=== PATIENT | female | born 1995 | race Two or more races ===

== ENCOUNTER 2018-12-02 12:52 | Emergency (ER) | payer SELFPAY ==
[2018-12-02 13:03] VITALS: BP 122/69; PULSE 69; TEMP 98; BMI 22.1
--- NOTE | 2018-12-02 13:27 | PDOC ---
History of Present Illness - General Chief Complaint: Injury Stated Complaint: RT HAND INJURY Time Seen by Provider: 12/02/18 13:03 - History of Present Illness Initial Comments: 12/02/18 13:24 23-year-old female with history of iron deficiency anemia presents for right wrist pain after a fall last night. She denies hitting her head. She points to the DRUJ as the area of her discomfort Past History - Past Medical History Allergies/Adverse Reactions: Allergies Allergy/AdvReac Type Severity Reaction Status Date / Time cat dander Allergy Verified 12/02/18 13:01 Home Medications: Ambulatory Orders NK [No Known Home Medication] 12/02/18 COPD: No - Suicide/Smoking/Psychosocial Hx Smoking Status: No Smoking History: Never smoked Number of Cigarettes Smoked Daily: 0 Review of Systems - Review of Systems Musculoskeletal: Yes: Joint Pain *Physical Exam - Vital Signs Last Vital Signs Temp Pulse Resp BP Pulse Ox 98 F 69 18 122/69 99 12/02/18 12:57 12/02/18 12:57 12/02/18 12:57 12/02/18 12:57 12/02/18 12:57 - Physical Exam Comments: 12/02/18 13:25 Right wrist skin color and temperature are normal. There is no tenderness about the elbow. There is full supination and pronation. No tenderness about the distal radius radial styloid distal ulnar ulna styloid. Mild tenderness about the DRUJ. No tenderness about the snuffbox. Mildly decreased range of motion. No gross sensorimotor deficits neurovascular intact. Negative: Ray, axial grind Moderate Sedation - Procedure Monitoring Vital Signs: Procedure Monitoring Vital Signs Temperature 98 F 12/02/18 12:57 Pulse Rate 69 12/02/18 12:57 Respiratory Rate 18 12/02/18 12:57 Blood Pressure 122/69 12/02/18 12:57 O2 Sat by Pulse Oximetry (%) 99 12/02/18 12:57 *DC/Admit/Observation/Transfer Diagnosis at time of Disposition: Wrist sprain - Discharge Dispostion Disposition: HOME Condition at time of disposition: Stable Decision to Admit order: No - Referrals Referrals: Lucian Kimball MD [Staff Physician] - - Patient Instructions Printed Discharge Instructions: Wrist Sprain, DI for Wrist Sprain Additional Instructions: Return to the emergency room should symptoms worsen or go unresolved. He may wear the wrist splint for comfort and remove it for gentle range of motion at home. Follow-up with hand surgery in 2-3 days for further evaluation and treatment options. - Post Discharge Activity
== END 2018-12-02 13:59 | disposition home or self-care (01) ==
LOC: JERFT 12:52 → JER 12:52 → JERFT 13:59
PROC: 2W3CX1Z Immobilization of Right Lower Arm using Splint (ICD-10-PCS; principal; 2018-12-02)
DX: S63.501A Unspecified sprain of right wrist, initial encounter (principal); W18.39XA Other fall on same level, initial encounter; Y93.89 Activity, other specified; Y92.89 Other specified places as the place of occurrence of the external cause; Y99.8 Other external cause status
CPT/HCPCS: 73110-TC-RT-FY; 99281-25

== ENCOUNTER 2020-11-30 10:17 | Emergency (ER) | payer OTHER ==
[2020-11-30 11:47] VITALS: BP 124/74; PULSE 87; TEMP 97.8; BMI 19.2
[2020-11-30] MEDS ORDERED: SODIUM CHLORIDE 0.9% 500 ML INFUS.BAG IV ONE (12:25)
[2020-11-30] MEDS ORDERED: ONDANSETRON 4 MG/2 ML VIAL IVPUSH ONE (12:25)
[2020-11-30] MEDS ORDERED: ONDANSETRON 4 MG/2 ML VIAL ONE (12:31)
[2020-11-30 13:14] LABS: BASO % 0.6 % (0-2.0); HEMATOCRIT 41.8 % (32.4-45.2); HEMOGLOBIN 14.5 GM/dL (10.7-15.3); LYMPH % 26.8 % (8-40); MCH 32.9 pg (25.7-33.7); MCHC 34.8 g/dl (32.0-36.0); MEAN CELL VOLUME 94.6 fl (80-96); MEAN PLT VOLUME 9.5 fl (7.5-11.1); MONO % 7.8 % (3.8-10.2); NEUT % 64.8 % (42.8-82.8); PLATELET COUNT 190 K/MM3 (134-434); RBC 4.41 M/mm3 (3.60-5.2); RDW 12.9 % (11.6-15.6); WHITE BLOOD COUNT 8.3 K/mm3 (4.0-10.0)
[2020-11-30 13:44] LABS: CHLORIDE 103 mmol/L (98-107); POTASSIUM 3.4 mmol/L (3.5-5.1); SODIUM 135 mmol/L (136-145)
[2020-11-30 13:46] LABS: ANION GAP 9 MMOL/L (8-16); BLOOD UREA NITROGEN 10.6 mg/dL (7-18); CALCIUM 9.2 mg/dL (8.5-10.1); CO2 23 mmol/L (21-32); GLUCOSE,RANDOM 116 mg/dL (74-106); LIPASE 98 U/L (73-393)
[2020-11-30 13:47] LABS: ALBUMIN 4.1 g/dl (3.4-5.0)
[2020-11-30 13:49] LABS: CREATININE 0.7 mg/dL (0.55-1.3); SGOT/AST 13 U/L (15-37); SGPT/ALT 17 U/L (13-61)
[2020-11-30 13:51] LABS: BILIRUBIN,TOTAL 0.6 mg/dL (0.2-1); TOT PROT 7.1 g/dl (6.4-8.2)
[2020-11-30 13:52] LABS: ALK PHOS 32 U/L (45-117)
[2020-11-30 16:07] LABS: URINE APPEARANCE CLEAR; URINE COLOR DK YELLOW
[2020-11-30 16:08] LABS: URINE BILIRUBIN NEGATIVE (NEGATIVE); URINE GLUCOSE (UA) NEGATIVE (NEGATIVE); URINE KETONE >=80 mg/dl (NEGATIVE); URINE PROTEIN 1+ (NEGATIVE)
[2020-11-30 16:09] LABS: EPI CELLS 15.8 /uL (0-25.1); HYALINE CASTS 5.78 /uL (0-3.1); URINE BACTERIA 251.4 /uL (0-1359); URINE LEUK ESTERASE NEGATIVE (NEGATIVE); URINE NITRITE NEGATIVE (NEGATIVE); URINE RBC 6.5 /uL (0-23.9); URINE WBC 8.8 /uL (0-25.8)
== END 2020-11-30 15:07 | disposition home or self-care (01) ==
LOC: JER 10:17
PROC: 3E033NZ Introduction of Analgesics, Hypnotics, Sedatives into Peripheral Vein, Percutaneous Approach (ICD-10-PCS; principal; 2020-11-30)
DX: R55 Syncope and collapse (principal)
CPT/HCPCS: 36415; 76801-TC; 80053; 81003; 82550; 83690; 84484; 84702; 85025; 86850; 86900; 86901; 87086; 93005; 93010; 99285-25

== ENCOUNTER 2020-12-30 11:05 | Emergency (ER) | payer OTHER ==
[2020-12-30 11:16] VITALS: BP 126/72; PULSE 87; TEMP 97.6; BMI 19.7
[2020-12-30] MEDS ORDERED: SODIUM CHLORIDE 1,000 ML IV STA (11:42)
[2020-12-30 12:36] LABS: ALBUMIN 3.4 g/dl (3.4-5.0); CALCIUM 8.9 mg/dL (8.5-10.1)
[2020-12-30 12:37] LABS: BLOOD UREA NITROGEN 11.7 mg/dL (7-18)
[2020-12-30 12:40] LABS: CREATININE 0.6 mg/dL (0.55-1.3)
[2020-12-30 12:41] LABS: BILIRUBIN,TOTAL 0.2 mg/dL (0.2-1); TOT PROT 6.5 g/dl (6.4-8.2)
[2020-12-30 13:00] LABS: HCG,QUALITATIVE URINE Positive
[2020-12-30 13:05] LABS: EPI CELLS 1 /uL (0-25.1); PH,URINE >= 9.0 (5.0-8.0); URINE BACTERIA 37 /uL (0-1359); URINE BILIRUBIN NEGATIVE (NEGATIVE); URINE COLOR RED; URINE GLUCOSE (UA) NEGATIVE (NEGATIVE); URINE KETONE NEGATIVE (NEGATIVE); URINE LEUK ESTERASE 1+ (NEGATIVE); URINE NITRITE NEGATIVE (NEGATIVE); URINE PROTEIN 4+ (NEGATIVE); URINE UROBILINOGEN 0.2 mg/dL (0.2-1.0)
[2020-12-30 13:09] LABS: URINE APPEARANCE BLOODY; URINE RBC 8877.1 /uL (0-23.9); URINE WBC 1.2 /uL (0-25.8)
[2020-12-30 13:10] LABS: HYALINE CASTS 4.5 /uL (0-3.1)
[2020-12-30 13:20] LABS: BASO % 0.5 % (0-2.0); EOS % 0.4 % (0-4.5); HEMATOCRIT 32.6 % (32.4-45.2); HEMOGLOBIN 11.3 GM/dL (10.7-15.3); LYMPH % 25.8 % (8-40); MCH 33.3 pg (25.7-33.7); MCHC 34.6 g/dl (32.0-36.0); MEAN CELL VOLUME 96.2 fl (80-96); MEAN PLT VOLUME 9.3 fl (7.5-11.1); MONO % 7.1 % (3.8-10.2); NEUT % 66.2 % (42.8-82.8); PLATELET COUNT 231 K/MM3 (134-434); RBC 3.39 M/mm3 (3.60-5.2); RDW 13.5 % (11.6-15.6); WHITE BLOOD COUNT 7.7 K/mm3 (4.0-10.0)
== END 2020-12-30 14:25 | disposition home or self-care (01) ==
LOC: JER 11:05
PROC: 3E0337Z Introduction of Electrolytic and Water Balance Substance into Peripheral Vein, Percutaneous Approach (ICD-10-PCS; principal; 2020-12-30)
DX: O26.851 Spotting complicating pregnancy, first trimester (principal); Z3A.09 9 weeks gestation of pregnancy
CPT/HCPCS: 36415; 76817-TC; 80053; 81003; 84702; 84703; 85025; 86850; 86900; 86901; 87086; 99284-25

== ENCOUNTER 2021-06-26 20:53 | Emergency (ER) | payer OTHER ==
[2021-06-26 21:00] VITALS: BP 112/78; PULSE 81; TEMP 98.4; BMI 18.8
[2021-06-26] MEDS ORDERED: ONDANSETRON *ODT* 4 MG TABLET SL ONE (21:53)
[2021-06-26] MEDS ORDERED: ONDANSETRON *ODT* 4 MG TABLET ONE (21:54)
== END 2021-06-26 23:05 | disposition home or self-care (01) ==
LOC: JERFT 20:53
DX: G50.1 Atypical facial pain (principal)
CPT/HCPCS: 70450-TC; 70486-TC; 99284-25; Q0162